=== PATIENT | male | born 1975 | race Caucasian/White ===

== ENCOUNTER 2020-03-03 04:51 | Emergency (ER) | payer SELFPAY ==
--- NOTE | ~2020-03-03 | CT_ITS ---
EXAMINATION: CT abdomen pelvis w con DATE: 03/03/2020 06:15 INDICATION: Abdominal pain TECHNIQUE: Computed tomography (CT) of the abdomen and pelvis was performed with 100 mL Omnipaque-350 intravenous contrast. Automated exposure control and iterative reconstruction technique were employe d. The dose-length product was 442.14 mGy-cm. COMPARISON: None FINDINGS: Lung bases are clear. Heart size is normal. No pericardial or pleural effusion. Small sliding-type hi atal hernia. 12 mm lesion with ill-defined margins and decreased attenuation/enhancement in segment I Vb of the liver. Gallbladder, spleen, pancreas, bilateral adrenal glands and kidneys are normal. Blad earline is normal. Appendix is normal. There are few scattered colonic diverticula without adjacent infla mmatory change to suggest diverticulitis. Single loop of mildly dilated small bowel in the left upper quadrant which may be transient related to peristalsis. No free intraperitoneal gas or fluid. No pat hologically enlarged abdominal or pelvic lymphadenopathy. There are few scattered small bone islands in the pelvis and bilateral femoral heads. IMPRESSION: 1. No acute intra-abdominal/pelvic process. 2. Small sliding-type hiatal hernia. 3. Indeterminate 12 mm low-attenuation/hypoenhancing lesion in segment IVb of the liver. In the absen ce of known liver disease or primary malignancy this most likely benign but would recommend further e valuation with pre and postcontrast MRI. Reviewed, dictated and finalized at location A. IMPRESSION: 1. No acute intra-abdominal/pelvic process. 2. Small sliding-type hiatal hernia. 3. Indeterminate 12 mm low-attenuation/hypoenhancing lesion in segment IVb of t he liver. In the absence of known liver disease or primary malignancy this most likely benign but would recommend further evaluation with pre and postcontrast MRI.
[2020-03-03 04:49] VITALS: BP 140/100; RESP 20; TEMP 36.8; O2SAT 100
--- NOTE | 2020-03-03 05:04 | ED.ABDPAIN ---
HPI - Abdominal Pain General Chief Complaint: Abdominal Pain <Jones Pollard DO - Last Filed: 03/03/20 05:07> Stated Complaint: n/v <Jones Pollard DO - Last Filed: 03/03/20 05:07> Source: RN notes reviewed <Jones Pollard DO - Last Filed: 03/03/20 05:07> History of Present Illness HPI narrative: Patient presents emergency department from home via EMS for nausea vomiting. Patient states that this evening began to have numerous episodes of nausea vomiting as well as diffuse abdominal pain described as cramping. States he has a history of Crohn's disease and irritable bowel syndrome currently on no medications and does not have a current physician. Denies any fevers or chills chest pain shortness of breath or any other symptoms. Patient was given morphine and Zofran by EMS <Jones Pollard DO - Last Filed: 03/03/20 05:07> Related Data Allergies/Adverse Reactions: Allergies Allergy/AdvReac Type Severity Reaction Status Date / Time No Known Allergies Allergy Verified 03/03/20 04:57 <Jones Pollard DO - Last Filed: 03/03/20 05:07> Review of Systems Review of Systems: Narrative: Gen.: Denies fevers or chills ENT: Denies congestion Respiratory: Denies shortness of breath or cough CV: Denies chest pain or palpitations GI: See HPI denies burning, urgency, frequency or hematuria Musculoskeletal: Denies back pain or muscle pain Neuro: Denies numbness, tingling, weakness or focal weakness Skin: Denies rash Except as documented, all other systems reviewed and negative <DO Kaylin Esparza Last Filed: 03/03/20 05:07> [facility] Past Medical History Medical History: Medical History (Updated 03/03/20 @ 10:03 by Janes Reyes MD) Asthma Crohn's disease Irritable bowel syndrome <Jones Pollard DO - Last Filed: 03/03/20 05:07> Social History Social History: Social History (Updated 03/03/20 @ 05:06 by Jones Pollard DO) Smoking status: Never smoker <Jones Pollard DO - Last Filed: 03/03/20 05:07> Exam Narrative: Exam Narrative: APPEARANCE: No acute distress, nontoxic, resting in bed HEENT: Normocephalic, atraumatic, OMM RESPIRATORY: No respiratory distress, clear to auscultation bilaterally with no rhonchi wheezing or rales CARDIOVASCULAR: RRR s murmur ABDOMINAL: Soft, nondistended, diffusely tender to palpation, no rebound or guarding MUSCULOSKELETAl: Moves all extremities. No clubbing, cyanosis or edema. NEURO: Awake and alert. Following commands, speech normal, no focal deficits SKIN:: Warm, dry. Normal Color PSYCHIATRIC: Normal affect/mood <DO Kaylin Esparza Last Filed: 03/03/20 05:07> Course Vital Signs Vital signs: Vital Signs Temperature 36.8 C 03/03/20 04:49 Respiratory Rate 20 03/03/20 04:49 Blood Pressure 140/100 H 03/03/20 04:49 Pulse Oximetry 100 03/03/20 04:49 Temperature 36.8 C 03/03/20 04:49 Pulse Rate 75 03/03/20 09:45 Respiratory Rate 15 03/03/20 09:45 Blood Pressure 163/104 H 03/03/20 09:45 Pulse Oximetry 99 03/03/20 09:45 <DO Kaylin Esparza Last Filed: 03/03/20 05:07> Vital Signs Temperature 36.8 C 03/03/20 04:49 Respiratory Rate 20 03/03/20 04:49 Blood Pressure 140/100 H 03/03/20 04:49 Pulse Oximetry 100 03/03/20 04:49 Temperature 36.8 C 03/03/20 04:49 Pulse Rate 75 03/03/20 09:45 Respiratory Rate 15 03/03/20 09:45 Blood Pressure 163/104 H 03/03/20 09:45 Pulse Oximetry 99 03/03/20 09:45 <Janes Reyes MD - Last Filed: 03/03/20 14:49> MDM - Abdominal Pain MDM Narrative Medical decision making narrative: Feeling better. tolerating PO. <Janes Reyes MD - Last Filed: 03/03/20 14:49> Lab Data Result diagrams: : 03/03/20 05:00 03/03/20 05:00 <DO Kaylin Esparza Last Filed: 03/03/20 05:07> Labs: Lab Results 03/03/20 03/03/20 03/03/20 Range/Units
[2020-03-03 05:05] LABS: Basophils Percent Auto 0.5 % (0.2-1.2); Eosinophils Percent Auto 0.1 % (0-4.4); Hematocrit 44.6 % (42.0-52.0); Hemoglobin 15.3 g/dL (14.0-18.0); Immature Granulocyte Absolute 0.04 K/mm3 (0.00-0.031); Immature Granulocyte Percent A 0.5 % (0-0.5); Lymphocytes Absolute Auto 0.98 K/mm3 (0.9-3.2); Lymphocytes Percent Auto 11.8 % (18.3-44.2); Mean Corpuscular HGB Conc 34.3 g/dl (32-36); Mean Corpuscular Hemoglobin 31.9 pg (26-34); Mean Corpuscular Volume 92.9 fl (80-100); Mean Platelet Volume 10.7 fl (7.4-10.4); Monocytes Absolute Auto 0.2 K/mm3 (0.1-0.6); Monocytes Percent Auto 2.5 % (2.6-8.5); Neutrophils Percent Auto 84.6 % (45.5-73.1); Platelet Count Result 203 k/mm3 (150-375); Red Cell Distribution Width 11.7 % (11.5-14.5); White Blood Count 8.3 K/mm3 (4.5-10.0)
[2020-03-03 05:21] LABS: Alanine Aminotransferase 19 U/L (4-50); Albumin Level 4.8 g/dL (3.5-5.1); Alkaline Phosphatase 76 U/L (38-126); Aspartate Amino Transferase 27 U/L (17-59); Bilirubin,Total 0.5 mg/dL (0.2-1.3); Blood Urea Nitrogen 12 mg/dL (9-20); Calcium 9.1 mg/dL (8.4-10.2); Carbon Dioxide 20 mmol/L (22-30); Chloride 107 mmol/L (98-107); Estimated CRCL calculation 88 ml/min; Estimated Glomerular Filt Rate > 60; Glucose 148 mg/dL (75-110); Lipase 81 U/L (23-300); Sodium 139 mmol/L (137-145)
[2020-03-03 06:58] LABS: Add Urine Microscopic? YES; Appearance Urine Clear (Clear); Bilirubin Urine Negative (Negative); Blood Urine Negative (Negative); Color Urine Straw (Yellow); Glucose Urine UA Negative (Negative); Ketones Urine Trace mg/dL (Negative); Leukocyte Esterase Ur Negative LEU/UL (Negative); Mucus Urine Rare /lpf; Nitrate Urine Negative (Negative); Protein Urine Negative (Negative); RBC Urine 0-2 /hpf (0-2); Specific Grav Ur 1.013 (1.001-1.035); Urobilinogen Urine Negative mg/dL (<2.0); WBC Urine 0-3 /hpf
[2020-03-03] MEDS: PROMETHAZINE HCL 25 MG/ML AMPUL 12.5 MG IV PUSH (07:15)
[2020-03-03] MEDS: SODIUM CHLORIDE 0.9% IV 1,000 ML 999 ML IV CONT (07:22)
[2020-03-03 07:26] VITALS: BP 156/65; PULSE 88; RESP 18; O2SAT 99
[2020-03-03 09:45] VITALS: BP 163/104; PULSE 75; RESP 15; O2SAT 99
== END 2020-03-03 10:30 | disposition home or self-care (01) ==
PROVIDERS: Emergency Provider Emergency Medicine
DX: R10.84 Generalized abdominal pain (principal); R11.2 Nausea with vomiting, unspecified; K76.9 Liver disease, unspecified; K44.9 Diaphragmatic hernia without obstruction or gangrene; J45.909 Unspecified asthma, uncomplicated; K50.90 Crohn's disease, unspecified, without complications
CPT/HCPCS: 36415; 74177; 80053; 81001; 83690; 85025; 96361; 96374; 99284; A9270; J2550; J7030; Q9967